=== PATIENT | female | born 1980 | race Caucasian/White ===

== ENCOUNTER → 2019-04-16 09:05 | Outpatient (BNVA) | payer BC, SELFPAY | PROVIDERS: Family Provider Family Medicine; PCP Family Medicine; Visit Provider Nurse Practitioner Women's Health | DX: Z01.89 Encounter for other specified special examinations (principal) ==

== ENCOUNTER 2019-05-25 12:34 | Outpatient (CLI) | payer BC, SELFPAY ==
--- NOTE | 2019-05-25 13:41 | XR_ITS ---
WS: [id number] LEFT CALCANEUS TECHNIQUE: Lateral and tangential view. HISTORY: PLANTAR FASCITIS COMPARISON: None available. Calcaneus is intact. No fracture. There is a very tiny calcaneal spur. No soft tissue thickening. XR/XR calcaneus LT min 2V [id number] IMPRESSION: Tiny calcaneal spur.
--- NOTE | 2019-05-25 13:42 | XR_ITS ---
WS: [id number] LEFT HIP HISTORY: LEFT HIP PAIN COMPARISON: None available. LEFT hip: No acute fracture or dislocation. No significant osteoarthritis. SI joint is negative. No soft tissue abnormality. XR/XR hip LT 2-3V wo/w pel* [id number] IMPRESSION: 1. No hip fracture. 2. Normal LEFT hip.
--- NOTE | 2019-05-25 13:43 | XR_ITS ---
WS: [id number] LUMBAR SPINE: 3 VIEWS TECHNIQUE: AP, lateral and L5-S1 spot. HISTORY: CHRONIC BACK PAIN COMPARISON: None available. Lumbar vertebra are normally aligned. Mild narrowing of the L4-5 disc space. Asymmetric narrowing greatest on the RIGHT. Minimal narrowing of the L5-S1 disc space. No fractures. SI joints are symmetric bilaterally. No soft tissue abnormalities. XR/XR lumbar spine 2-3V* [id number] IMPRESSION: 1. Mild asymmetric narrowing L4-5 disc space. 2. Minimal narrowing L5-S1 disc.
== END 2019-05-25 12:35 | disposition home or self-care (01) ==
LOC: RADWPI 12:38
PROVIDERS: Family Provider Family Medicine; PCP Family Medicine; Visit Provider Family Medicine
DX: M25.552 Pain in left hip (principal); M72.2 Plantar fascial fibromatosis; M54.9 Dorsalgia, unspecified; M48.061 Spinal stenosis, lumbar region without neurogenic claudication; M77.32 Calcaneal spur, left foot
CPT/HCPCS: 72100; 73502; 73650

== ENCOUNTER 2019-06-02 11:08 | Outpatient (CLI) | payer BC, SELFPAY ==
--- NOTE | 2019-06-02 11:17 | CT_ITS ---
WS: [id number] CT ABDOMEN PELVIS TECHNIQUE: Contrast-enhanced CT of the abdomen and pelvis with coronal and sagittal reformatted image s. CLINICAL INFORMATION: ABD PAIN, RLQ COMPARISON: None. DLP: 1209.[address] scans at [facility] use at least one of these dose optimization techniques: automat ed exposure control; mA and/or kV adjustment per patient size (includes targeted exams where dose is matched to clinical indication); or iterative reconstruction. FINDINGS: Liver is normal in appearance. Normal portal vein and splenic vein. Normal spleen. Normal pancreas. N ormal visualized gallbladder. Lung bases are well aerated. Normal bilateral renal parenchymal enhance ment. No hydronephrosis. Normal caliber abdominal aorta. Appendix in the right lower quadrant is normal. No evidence of acute appendicitis. Mild cecal constipation. Normal sigmoid colon. Pelvic phleboliths. No obstructing renal or ureteral c alculi. Multifollicular ovaries bilaterally. No free fluid in the pelvis. Ovaries are somewhat high riding in the right ovary is near the midline right lower quadrant. Notified Kevon Krishnamurthy MD at 06/02/2019 12:[address]/CT abdomen pelvis w con* [id number] IMPRESSION: 1. No evidence of acute appendicitis. Normal appendix. 2. No hydronephrosis in either kidney. No obstructing renal or ureteral calcul i. Normal renal parenchymal enhancement. 3. Multifollicular ovaries bilaterally are somewhat high riding with the right ovary near the midline. No periovarian fluid. 4. No free fluid in the pelvis. 5. Mild cecal constipation.
[2019-06-02] MEDS: iohexol 300 mg/mL 50 mL Btl PO (11:54)
[2019-06-02] MEDS: iohexol 300 mg/mL 100 mL Btl IV (11:55)
== END 2019-06-02 11:09 | disposition home or self-care (01) ==
LOC: RADWPI 11:16
PROVIDERS: Family Provider Family Medicine; PCP Family Medicine; Visit Provider Family Medicine
DX: R10.31 Right lower quadrant pain (principal); N83.02 Follicular cyst of left ovary; N83.01 Follicular cyst of right ovary; K59.00 Constipation, unspecified
CPT/HCPCS: 74177; Q9967

== ENCOUNTER → 2019-12-07 09:35 | Outpatient (BNVA) | payer BC, SELFPAY | PROVIDERS: Family Provider Family Medicine; PCP Family Medicine; Visit Provider Obstetrics & Gynecology | DX: E28.2 Polycystic ovarian syndrome (principal); N93.9 Abnormal uterine and vaginal bleeding, unspecified; N91.4 Secondary oligomenorrhea; R10.2 Pelvic and perineal pain | CPT/HCPCS: 83001; 84146; 84443; 84702 ==

== ENCOUNTER → 2019-12-15 08:11 | Outpatient (BNVA) | payer BC, SELFPAY | PROVIDERS: Family Provider Family Medicine; PCP Family Medicine; Visit Provider Obstetrics & Gynecology | DX: R10.2 Pelvic and perineal pain (principal); N91.5 Oligomenorrhea, unspecified; Q51.818 Other congenital malformations of uterus | CPT/HCPCS: 76830 ==

== ENCOUNTER → 2019-12-30 13:27 | Outpatient (BNVA) | payer BC, SELFPAY | PROVIDERS: Family Provider Family Medicine; PCP Family Medicine; Visit Provider Obstetrics & Gynecology | DX: Z01.812 Encounter for preprocedural laboratory examination (principal); N93.9 Abnormal uterine and vaginal bleeding, unspecified; N91.4 Secondary oligomenorrhea; R10.2 Pelvic and perineal pain | CPT/HCPCS: 81025; 88305 ==

== ENCOUNTER → 2020-02-03 14:01 | Outpatient (BNVA) | payer BC, SELFPAY | PROVIDERS: Family Provider Family Medicine; PCP Family Medicine; Visit Provider Obstetrics & Gynecology | DX: N93.9 Abnormal uterine and vaginal bleeding, unspecified (principal); Z30.9 Encounter for contraceptive management, unspecified; Z30.430 Encounter for insertion of intrauterine contraceptive device | CPT/HCPCS: 81025 ==

== ENCOUNTER → 2021-01-22 11:52 | Outpatient (BNVA) | payer BC, SELFPAY | PROVIDERS: Family Provider Family Medicine; PCP Family Medicine; Visit Provider Obstetrics & Gynecology | DX: N93.9 Abnormal uterine and vaginal bleeding, unspecified (principal) | CPT/HCPCS: 83001; 84146; 84443; 84702; 85025 ==

== ENCOUNTER → 2021-01-29 09:15 | Outpatient (BNVA) | payer BC, SELFPAY | PROVIDERS: Family Provider Family Medicine; PCP Family Medicine; Visit Provider Obstetrics & Gynecology | DX: R10.2 Pelvic and perineal pain (principal) | CPT/HCPCS: 76830 ==

== ENCOUNTER 2021-02-12 14:35 | Emergency (ER) | payer BC, SELFPAY ==
[2021-02-12 14:58] VITALS: BP 152/91; PULSE 83; RESP 18; O2SAT 99; BMI 25.8
--- NOTE | 2021-02-12 15:03 | US_ITS ---
WS: [id number] ULTRASOUND PELVIS TECHNIQUE: Transvaginal. CLINICAL INFORMATION: R lower pelvic pain, hx cysts FINDINGS: Uterus Orientation: Anteverted. Size: 7.5 x 3.8 x 4.9 cm Masses: None. Cervix: Incidental nabothian cysts. Endometrium: Normal. Endometrium thickness: 11 mm. Adnexa: Multi follicular right ovary. Left ovary not visualized. Right ovary size: 3.4 x 2.6 x 1.8 cm. Free fluid: Small amount of free fluid Other findings: None. US/US transvaginal [id number] IMPRESSION: 1. Small amount of free fluid in the cul-de-sac. 2. No acute pelvic findings.
[2021-02-12 15:16] LABS: Basophils % 0.3 %; Eosinophils # 0.1 10^3/uL (0.0-0.8); Eosinophils % 1.4 %; Hematocrit 44.2 % (37.0-47.0); Hemoglobin 14.7 g/dL (11.5-15.3); Lymphocytes # 2.2 10^3/uL (0.8-4.8); Lymphocytes % 22.7 %; Mean Corpuscular HGB Conc 33.3 g/dL (30.0-36.0); Mean Corpuscular Hemoglobin 30.1 pg (28.0-34.0); Mean Corpuscular Volume 90.6 fl (81-99); Mean Platelet Volume 9.9 fL (7.4-10.4); Monocytes # 0.7 10^3/uL (0.2-0.9); Monocytes % 6.8 %; Neutrophils # 6.53 10^3/uL (1.8-7.7); Neutrophils % 68.4 %; Nucleated Red Blood Cells % 0 %; Platelet Count 315 10^3/cmm (130-400); Red Blood Count 4.88 10^6/uL (4.1-5.3); Red Cell Distribution Width 11.8 % (12.1-15.1); White Blood Count 9.6 10^3/uL (4.0-10.0)
[2021-02-12 15:38] LABS: HCG, Serum Qual Negative (Negative)
[2021-02-12 15:41] LABS: Alanine Aminotransferase 11 U/L (0-33); Albumin Level 4.6 g/dL (3.5-5.2); Alkaline Phosphatase 66 IU/L (35-105); Anion Gap 16.9 (5-19); Aspartate Amino Transferase 13 U/L (0-32); Blood Urea Nitrogen 11 mg/dL (6-20); Calcium 8.9 mg/dL (8.5-10.5); Carbon Dioxide 24 mmol/L (22-29); Chloride 103 mmol/L (98-107); Globulin 2.9 g/dL (1.3-4.6); Glomerular Filtration Rate 111.9 mL/min (90-130); Glucose 96 mg/dL (65-115); Lipase 51 U/L (13-60); Osmolality Calculated 289 mOsm/kg (285-295); Potassium 3.9 mmol/L (3.5-5.1); Sodium 140 mmol/L (136-145); Total Bilirubin 0.3 mg/dL (0.15-1.2); Total Protein 7.5 g/dL (6.6-8.7)
[2021-02-12 19:50] LABS: Add Urine Microscopic? NO; Charge for UA Resulting for Rev
[2021-02-12 19:56] LABS: Bilirubin Urine Neg (Negative); Blood Urine Neg (Negative); Glucose Urine UA Norm (Normal); Ketones Urine Negative (Negative); Leukocyte Esterase Urine Negative (Negative); Nitrate Urine Negative (Negative); Protein Urine Neg (Negative); Urine Appearance Clear (CLEAR); Urine Color Yellow (Yellow); Urobilinogen Urine Norm (Negative); pH Urine 5 (5-7)
[2021-02-12 20:59] VITALS: BP 146/100; PULSE 71; RESP 18; O2SAT 100
--- NOTE | 2021-02-12 21:11 | ED_ITS ---
HPI - General Adult General: Chief complaint: General Medical Stated complaint: SEVERE RIGHT SIDE PAIN Time Seen by Provider: 02/12/21 21:02 Source: patient Mode of arrival: ambulatory Limitations: no limitations History of Present Illness: HPI narrative: 40-year-old female states she been having left lower quadrant pain over the last 2 days got much worse today states that its much worse with any palpation or movement. States improved with rest denies any vomiting or diarrhea denies any vaginal bleeding denies any vaginal discharge or dysuria. States the pain is currently a 5 out of 10. Associated symptoms: Deny chest pain, dyspnea, headache(s), nausea, rash or vomiting Review of Systems Const: Denies: fever(s), chills, body aches or change in appetite Eyes: Denies: blurry vision or eye discomfort ENMT: Denies: throat pain or dental pain Card: Denies: chest pain Resp: Denies: dyspnea GI: Reports: abdominal pain; Denies: nausea, vomiting or diarrhea : Denies: dysuria Musc: Denies: neck pain or back pain Skin/Breast: Denies: rash Neuro: Denies: headache(s) Psych: Denies: depression [place]/Lymph: Denies: easy bruising All/Imm: Denies: urticaria PFSH ED PFSH: Medical History (Updated 02/12/21 @ 22:16 by Kathy Mcdaniels MD) Acne Hx LEEP (loop electrosurgical excision procedure), cervix, (~2001) Immunosuppression Psoriatic arthritis Ulnar neuropathy of both upper extremities Surgical History H/O section (~02/2003) H/O neck surgery (~06/2018) laminectomy; fusion History of back surgery (~2009) ISMAEL [facility]RI[facility] [place] Family History Father Hypertension Heart disease Grandfather Hypertension PATERNAL Stroke PATERNAL Mother Diabetes Grandmother Diabetes PATERNAL Family history of thyroid problem MATERNAL Stroke MATERAL Denies family history of Colon cancer Ovarian cancer Clotting disorder Breast cancer Anesthesia complication Bleeding disorder Uterine cancer Thyroid condition Social History Additional social history: - Tobacco use: Denies Alcohol use: Denies Drug use: Denies Physical Exam Const: COMMON NORMALS: no acute distress, patient oriented x3 and healthy appearing HENMT: COMMON NORMALS: normocephalic and atraumatic HEAD & SCALP: normoc ephalic and atraumatic Eye: COMMON NORMALS: Equal, round and reactive pupils present and EOMs intact bilaterally PUPIL: Yes Equal, round and reactive pupils present Neck/C-Spine: COMMON NORMALS: full ROM and supple Chest: COMMONS NORMALS: normal inspection of the chest and normal palpation of entire chest wall Resp: COMMON NORMALS: normal respiratory effort, No retractions, No use of accessory muscles and clear to auscultation bilaterally AUSCULTATION: clear to auscultation bilaterally Cardio: COMMON NORMALS: regular rate, regular rhythm and No murmurs present (Cardio) RATE: regular rate RHYTHM: regular rhythm GI: COMMON NORMALS: Normal to inspection, nondistended, normoactive bowel sounds present, Soft to palpation and no masses PALPATION: Yes Soft to palpation and Yes Tenderness to palpation present (GI) Details: RLQ Extremity: COMMON NORMALS: normal to inspection and full ROM Neuro: COMMON NORMALS: patient oriented x3, moves all extremities and no focal motor deficits Psych: COMMON NORMALS: mental status grossly normal, Normal thought process present and cooperative THOUGHT PROCESS: Normal thought process present Skin: COMMON NORMALS: no rashes or lesions noted and no wounds GENERAL SKIN EXAM: no rashes or lesions noted Course Vital Signs: Vital signs: Vital Signs Pulse Rate 71 02/12/21 20:59 Respiratory Rate 18 02/12/21 20:59 Blood Pressure 146/100 02/12/21 20:59 Pulse Oximetry 100 02/12/21 20:59 MDM - General Adult MDM Narrative: Medical decision making narrative: Patient presents here with right lower quadrant abdominal pain patient CT of her abdomen here is normal no signs of appendicitis ultrasound was normal as well no signs of confusion she has no vaginal discharge blood work is normal as well she is stable for discharge follow-up with her primary care doctor in 2 to 4 days return if worsening she understands agrees to plan. Lab Data: Labs: Lab Results 02/12/21 02/12/21 02/12/21 15:06 15:06 15:06 WBC 9.6 10^3/uL 10^3/ uL (4.0-10.0) RBC 4.88 10^6/uL 10^6 /uL (4.1-5.3) Hgb 14.7 g/dL g/dL (11.5-15.3) Hct 44.2 % % (37.0-47.0) MCV 90.6 fl fl (81-99) MCH 30.1 pg pg (28.0-34.0) MCHC 33.3 g/dL g/dL (30.0-36.0) RDW 11.8 % L % (12.1-15.1) Plt Count 315 10^3/cmm 10^3 /cmm (130-400) MPV 9.9 fL fL (7.4-10.4) Neut % (Auto) 68.4 % % Lymph % (Auto) 22.7 % % [place] % (Auto) 6.8 % % Eos % (Auto) 1.4 % % Baso % (Auto) 0.3 % % Neut # (Auto) 6.53 10^3/uL 10^3 /uL (1.8-7.7) Lymph # (Auto) 2.2 10^3/uL 10^3/ uL (0.8-4.8) [place] # (Auto) 0.7 10^3/uL 10^3/ uL (0.2-0.9) Eos # (Auto) 0.1 10^3/uL 10^3/ uL (0.0-0.8) Baso # (Auto) 0.0 10^3/uL 10^3/ uL (0.0-0.1) Nucleated RBC % (a uto) 0 % % Nucleated RBCs # 0.0 /100WBC /100W BC Sodium 140 mmol/L mmol/L (136-145) Potassium 3.9 mmol/L mmol/L (3.5-5.1) Chloride 103 mmol/L mmol/L (98-107) Carbon Dioxide 24 mmol/L mmol/L (22-29) Anion Gap 16.9 (5-19) BUN 11 mg/dL mg/dL (6-20) Creatinine 0.6 mg/dL mg/dL (0.5-0.9) GFR Calculation 111.9 mL/min mL/m in (90-130) Glucose 96 mg/dL mg/dL (65-115) Calculated Osmolal ity 289 mOsm/kg mOsm/ kg (285-295) Calcium 8.9 mg/dL mg/dL (8.5-10.5) Total Bilirubin 0.3 mg/dL mg/dL (0.15-1.2) AST 13 U/L U/L (0-32) ALT 11 U/L U/L (0-33) Alkaline Phosphata se 66 IU/L IU/L (35-105) Total Protein 7.5 g/dL g/dL (6.6-8.7) Albumin 4.6 g/dL g/dL (3.5-5.2) Globulin 2.9 g/dL g/dL (1.3-4.6) Lipase 51 U/L U/L (13-60) HCG, Qual Negative (Negative) Urine Color Urine Appearance Urine pH Ur Specific Gravit y Urine Protein Urine Glucose (UA) Urine Ketones Urine Blood Urine Nitrate Urine Bilirubin Urine Urobilinogen Ur Leukocyte Roxie ase 02/12/21 19:30 WBC RBC Hgb Hct MCV MCH MCHC RDW Plt Count MPV Neut % (Auto) Lymph % (Auto) [place] % (Auto) Eos % (Auto) Baso % (Auto) Neut # (Auto) Lymph # (Auto) [place] # (Auto) Eos # (Auto) Baso # (Auto) Nucleated RBC % (a uto) Nucleated RBCs # Sodium Potassium Chloride Carbon Dioxide Anion Gap BUN Creatinine GFR Calculation Glucose Calculated Osmolal ity Calcium Total Bilirubin AST ALT Alkaline Phosphata se Total Protein Albumin Globulin Lipase HCG, Qual Urine Color Yellow (Yellow) Urine Appearance Clear (CLEAR) Urine pH 5 (5-7) Ur Specific Gravit y 1.020 (1.005-1.030) Urine Protein Neg (Negative) Urine Glucose (UA) Norm (Normal) Urine Ketones Negative (Negative) Urine Blood Neg (Negative) Urine Nitrate Negative (Negative) Urine Bilirubin Neg (Negative) Urine Urobilinogen Norm mg/dL mg/dL (Negative) Ur Leukocyte Roxie ase Negative (Negative) Imaging Data^: CT Abd/Pel: Attestation: I personally reviewed and interpreted this imaging study as follows: Radiologist's impression: [address] [address] [address] Scan Report Signed Patient: Kalyn Trejo Unit #: [id number] : 1980 Age/Sex: 40 / F ADM Date: 02/12/21 Loc: ER Room/Bed: Attending Dr: Ordering Provider/Ordering MD: Kathy Mcdaniels MD Date of Service: 02/12/21 Procedure(s): CT abdomen pelvis w con* [id number] Accession Number(s): [id number] Report Number: [id number] PROCEDURE INFORMATION: Exam: CT Abdomen And Pelvis With Contrast Exam date and time: 02/12/2021 9:10 PM Age: 40 years old Clinical indication: Abdominal pain; Localized; Right lower quadrant (rlq); Prior surgery; Surgery type: , back; Additional info: Abd pain TECHNIQUE: Imaging protocol: Computed tomography of the abdomen and pelvis with contrast. Radiation optimization: All CT scans at this facility use at least one of these dose optimization techniques: automated exposure control; mA and/or kV adjustment per patient size (includes targeted exams where dose is matched to clinical indication); or iterative reconstruction. Contrast material: OMNI 300; Contrast volume: 95 ml; Contrast route: INTRAVENOUS (IV); COMPARISON: CT abdomen pelvis w con* [id number] 06/02/2019 11:52 AM RADIATION DOSE METRICS: Total DLP (mGy-cm): 1310.29 FINDINGS: Liver: There is no focal abnormality within the liver. Gallbladder and bile ducts: The gallbladder is normal. Pancreas: The pancreas is normal. Spleen: The spleen is normal. Adrenal glands: The adrenal glands are normal. Kidneys and ureters: The kidneys are normal. There is no evidence of hydronephrosis. There is no evidence of renal or ureteral calcifications. Stomach and bowel: There is no evidence of colitis/diverticulitis. Appendix: A normal appendix is identified. Intraperitoneal space: There is no evidence of free intraperitoneal fluid. Vasculature: Unremarkable. No abdominal aortic aneurysm. Lymph nodes: Unremarkable. No enlarged lymph nodes. Urinary bladder: Unremarkable as visualized. Reproductive: Unremarkable as visualized. Bones/joints: The lumbar spine demonstrates moderate degenerative changes at multiple levels. Soft tissues: Unremarkable. CT/CT abdomen pelvis w con* [id number] IMPRESSION: No acute findings. Dictated By: Ed Pascual Signed By: Ed Pascual Signed Date/Time: 02/12/212203 DD/ 09 US: Attestation: I personally reviewed and interpreted this imaging study as follows: Radiologist's impression: [address] [place] [address] Ultrasound Report Signed Patient: Kalyn Trejo Unit #: [id number] : 1980 Age/Sex: 40 / F ADM Date: 02/12/21 Loc: ER Room/Bed: Attending Dr: Ordering Provider/Ordering MD: Celsa Singh Date of Service: 02/12/21 Procedure(s): US transvaginal [id number] Accession Number(s): [id number] Report Number: [id number] WS: [id number] ULTRASOUND PELVIS TECHNIQUE: Transvaginal. CLINICAL INFORMATION: R lower pelvic pain, hx cysts FINDINGS: Uterus Orientation: Anteverted. Size: 7.5 x 3.8 x 4.9 cm Masses: None. Cervix: Incidental nabothian cysts. Endometrium: Normal. Endometrium thickness: 11 mm. Adnexa: Multi follicular right ovary. Left ovary not visualized. Right ovary size: 3.4 x 2.6 x 1.8 cm. Free fluid: Small amount of free fluid Other findings: None. US/US transvaginal [id number] IMPRESSION: 1. Small amount of free fluid in the cul-de-sac. 2. No acute pelvic findings. Dictated By: Addison Arnold MD Signed By: Addison Arnold MD Signed Date/Time: 02/12/21 1621 DD/ 1619 Discharge Plan Discharge Patient Disposition: Home Clinical Impression: Abdominal pain Qualifiers: Abdominal location: right lower quadrant Qualified Code(s): R10.31 - Right lower quadrant pain Condition: Stable Prescriptions: No Action multivitamin Tablet 1 tab PO DAILY RF: 0 lidocaine-epinephrine 2 %-1:100,000 solution 10 ml SUBCUT ONCE Qty: 10 RF: 0 mupirocin 2 % ointment 1 applic topical BID PRNRF: 0 aluminum chloride [Drysol Dab-O-Matic] 20 % solution 1 applic topical ONCE PRNRF: 0 escitalopram oxalate [Lexapro] 5 mg tablet 10 mg PO DAILY RF: 0 lorazepam 0.5 mg tablet 0.5 mg PO DAILY PRNRF: 0 medroxyprogesterone 10 mg tablet 10 mg PO DAILY Qty: 10 RF: 0 Tremfya 100 mg/mL auto-injector 100 mg SUBCUT .q 8 weeks Qty: 1 RF: 3 Discharge Orders: Discharge ED (Routine); Ordered 02/12/21 Ordered By: Kathy Mcdaniels Referrals: Vishnu Hernandez MD [Primary Care Provider] - 1-3 days Discharge Diet: Advance as tolerated Discharge Activity: Resume usual activity Patient Instructions: Abdominal Pain (ED) Coding Level of Care Code ED Industrial Services Worker for Chg Fwd Exam Comprehensive
[2021-02-12] MEDS: iohexol 300 mg/mL 100 mL Btl IV (21:32)
--- NOTE | 2021-02-12 21:51 | PC.NURSE ---
will hold patients IV morphine and zofran as patient denies nausea and states pain 1-2/10 scale and states if im not hurting really bad id really like to be able to drive myself home.
[2021-02-12 22:33] VITALS: BP 119/71; PULSE 63; RESP 18; TEMP 36.7; TEMP 36.8; O2SAT 99
== END 2021-02-12 22:37 | disposition home or self-care (01) ==
PROVIDERS: Physician Assistant; Emergency Provider Emergency Medicine; PCP Family Medicine
DX: R10.31 Right lower quadrant pain (principal)
CPT/HCPCS: 36415; 74177; 76830; 80053; 81003; 83690; 84703; 85025; 99283; Q9967

== ENCOUNTER → 2021-03-30 10:30 | Outpatient (BNVA) | payer BC, SELFPAY | PROVIDERS: PCP Family Medicine; Visit Provider Obstetrics & Gynecology | DX: G89.29 Other chronic pain (principal); R10.2 Pelvic and perineal pain; Z20.822 Contact with and (suspected) exposure to COVID-19 | CPT/HCPCS: 87635 ==

== ENCOUNTER 2021-04-02 09:49 | Outpatient (CLI) | payer BC, SELFPAY ==
[2021-04-02 11:12] LABS: Basophils % 0.4 %; Eosinophils # 0.2 10^3/uL (0.0-0.8); Eosinophils % 1.8 %; Hematocrit 45.9 % (37.0-47.0); Hemoglobin 14.9 g/dL (11.5-15.3); Lymphocytes # 1.9 10^3/uL (0.8-4.8); Lymphocytes % 22.9 %; Mean Corpuscular HGB Conc 32.5 g/dL (30.0-36.0); Mean Corpuscular Hemoglobin 29.4 pg (28.0-34.0); Mean Corpuscular Volume 90.5 fl (81-99); Monocytes # 0.7 10^3/uL (0.2-0.9); Monocytes % 8.4 %; Neutrophils # 5.62 10^3/uL (1.8-7.7); Nucleated Red Blood Cells % 0 %; Platelet Count 290 10^3/cmm (130-400); Red Blood Count 5.07 10^6/uL (4.1-5.3); Red Cell Distribution Width 11.8 % (12.1-15.1); White Blood Count 8.5 10^3/uL (4.0-10.0)
[2021-04-02 11:37] LABS: Alanine Aminotransferase 15 U/L (0-33); Albumin Level 4.5 g/dL (3.5-5.2); Alkaline Phosphatase 70 IU/L (35-105); Anion Gap 10.2 (5-19); Aspartate Amino Transferase 16 U/L (0-32); Blood Urea Nitrogen 8 mg/dL (6-20); Calcium 9.6 mg/dL (8.5-10.5); Carbon Dioxide 28 mmol/L (22-29); Chloride 103 mmol/L (98-107); Globulin 3.3 g/dL (1.3-4.6); Glomerular Filtration Rate 111.9 mL/min (90-130); Glucose 107 mg/dL (65-115); Osmolality Calculated 283 mOsm/kg (285-295); Potassium 4.2 mmol/L (3.5-5.1); Sodium 137 mmol/L (136-145); Total Bilirubin 0.2 mg/dL (0.15-1.2); Total Protein 7.8 g/dL (6.6-8.7)
[2021-04-02 12:05] LABS: HIV 1 & 2 Antibody Non-Reactive (Non-Reactiv); HIV 1 & 2 Antigen Non-Reactive (Non-Reactiv)
[2021-04-02 12:58] LABS: Hepatitis A Antibody IgM Non-Reactive (Nonreactive); Hepatitis B Core AB, Total Non-Reactive (Nonreactive); Hepatitis C Virus Antibody Non-Reactive (Nonreactive)
[2021-04-02 15:26] LABS: Hepatitis B Surface AB < 3.5 (11.5-1000)
[2021-04-02 15:56] LABS: Hepatitis B Surface Antigen Non-Reactive (Nonreactive)
[2021-04-04 14:32] LABS: Quantiferon Mitogen >10.00 IU/mL; Quantiferon Nil 0.01 IU/mL; Quantiferon Plus TB2 0.01 IU/mL; Quantiferon TB Gold NEGATIVE (NEGATIVE)
== END 2021-04-02 09:50 | disposition home or self-care (01) ==
PROVIDERS: PCP Family Medicine; Visit Provider Dermatology
DX: L40.0 Psoriasis vulgaris (principal); Z79.899 Other long term (current) drug therapy
CPT/HCPCS: 80053; 85025; 86480; 86705; 86706; 86709; 86803; 87340; 87806

== ENCOUNTER 2021-04-04 10:11 | Day surgery (SDC) | payer BC, SELFPAY ==
[2021-04-02 10:30] VITALS: BMI 26.6
--- NOTE | 2021-04-02 12:48 | ANES.PREANE2 ---
Pre-Anesthetic Assessment Height/Weight: Height 1.7 m Weight 77.111 kg Operation Date: 04/04/21 07:00 Proposed Procedures p [id number]/R10.2/G89.29(Not Applicable) - Hamzah Bedolla MD Was Beta Curtis taken within 24 hours: N/A Social No alcohol and No tobacco Exam alert, oriented x 3, clear to auscultation bilaterally and regular rate & rhythm Airway Submandibular: within normal limits Cervical ROM: Other (Limited prior neck surgery) Mallampati: Class I Dentition: full Pulmonary None reported CV/HEM None reported METS > 4 Chronic abdominal pain Hepatic None reported GI None reported Metabolic None reported Musc/skel Psoriatic arthritis on immunosuppresive agents Neuropsych None reported Anesthetic Plan ASA status: 2 Anesthesia: Anesthesia Evaluation and General Risk of > 500 ml blood loss (7ml/kg in children): No Medications/Allergies Home Medications Medication Instructions Recorded Confirmed Last Taken Type aluminum chloride 20 % topical 1 applic TOPICAL ONCE PRN ml 01/22/21 04/02/21 Unknown History solution (Drysol Dab-O-Matic) mupirocin 2 % topical ointment 1 applic TOPICAL BID PRN g 01/22/21 04/02/21 Unknown History escitalopram oxalate 5 mg tablet 10 mg PO DAILY tab 02/02/21 04/02/21 Unknown History (Lexapro) lorazepam 0.5 mg tablet 0.5 mg PO DAILY PRN 02/02/21 04/02/21 Unknown History guselkumab 100 mg/mL subcutaneous 100 mg SUBCUT .C1gmnae #1 ml 03/06/21 04/02/21 Unknown Rx syringe (Tremfya) Allergies Allergy/AdvReac Type Severity Reaction Status Date / Time No Known Allergies Allergy Verified 04/02/21 10:27 [facility] Anesthesia Medical History Acne Hx LEEP (loop electrosurgical excision procedure), cervix, (~2001) Immunosuppression Psoriatic arthritis Ulnar neuropathy of both upper extremities Surgical History H/O section (~02/2003) H/O neck surgery (~06/2018) laminectomy; fusion History of back surgery (~2009) [facility] [place] Family History Father Hypertension Heart disease Grandfather Hypertension PATERNAL Stroke PATERNAL Mother Diabetes Grandmother Diabetes PATERNAL Family history of thyroid problem MATERNAL Stroke MATERAL Denies family history of Colon cancer Ovarian cancer Clotting disorder Breast cancer Anesthesia complication Bleeding disorder Uterine cancer Thyroid condition Social History Additional social history: - Tobacco use: Denies Alcohol use: Denies Drug use: Denies Female Reproductive History Date of last menstrual period: 02/19/21 Data Anesthesia Cardiac Studies: No Data to Display
[2021-04-04] VITALS (7 sets, daily range): BP systolic 108–143; BP diastolic 51–85; PULSE 75–99; RESP 16–20; TEMP 36.2–36.8; O2SAT 96–100
--- NOTE | 2021-04-04 09:38 | ANES.PAUD2 ---
Pre-Anesthetic Update Pre-Anesthetic Assessment: Date of Surgery/Procedure: 04/04/21 Proposed Procedure: Operation Date: 04/04/21 11:50 Proposed Procedures p [id number]/R10.2/G89.29(Not Applicable) - Hamzah Bedolla MD Any changes to Pre-Anesthetic Assessment?: No Exam: Pre-Anes Outpt Exam: alert, oriented x 3, clear to auscultation bilaterally and regular rate & rhythm Cardiac Studies: No Data to Display
[2021-04-04 10:53] LABS: Add Urine Microscopic? NO; Charge for UA Resulting for Rev
[2021-04-04] MEDS: scopolamine 1.5 Patch 1 PATCH TRANSDERMA (11:00)
[2021-04-04] MEDS: sodium chloride 0.9% 500 ML IV (11:00)
[2021-04-04 11:01] LABS: Basophils % 0.4 %; Eosinophils # 0.1 10^3/uL (0.0-0.8); Eosinophils % 1.1 %; Hematocrit 43.6 % (37.0-47.0); Hemoglobin 14.5 g/dL (11.5-15.3); Lymphocytes # 2.1 10^3/uL (0.8-4.8); Lymphocytes % 25.8 %; Mean Corpuscular HGB Conc 33.3 g/dL (30.0-36.0); Mean Corpuscular Hemoglobin 29.7 pg (28.0-34.0); Mean Corpuscular Volume 89.2 fl (81-99); Mean Platelet Volume 9.8 fL (7.4-10.4); Monocytes # 0.6 10^3/uL (0.2-0.9); Monocytes % 7.7 %; Neutrophils # 5.28 10^3/uL (1.8-7.7); Neutrophils % 64.6 %; Nucleated Red Blood Cells % 0 %; Platelet Count 271 10^3/cmm (130-400); Red Blood Count 4.89 10^6/uL (4.1-5.3); Red Cell Distribution Width 11.6 % (12.1-15.1); White Blood Count 8.2 10^3/uL (4.0-10.0)
[2021-04-04 11:03] LABS: OR HCG Qualitative Urine Negative (Negative)
[2021-04-04 11:19] LABS: Bilirubin Urine Neg (Negative); Blood Urine Neg (Negative); Glucose Urine UA Norm (Normal); Ketones Urine Negative (Negative); Leukocyte Esterase Urine Negative (Negative); Nitrate Urine Negative (Negative); Protein Urine Neg (Negative); Urine Appearance Clear (CLEAR); Urine Color Yellow (Yellow); Urobilinogen Urine Neg (Negative); pH Urine 6 (5-7)
[2021-04-04 11:47] LABS: Alanine Aminotransferase 13 U/L (0-33); Albumin Level 4.2 g/dL (3.5-5.2); Alkaline Phosphatase 66 IU/L (35-105); Aspartate Amino Transferase 18 U/L (0-32); Blood Urea Nitrogen 9 mg/dL (6-20); Calcium 8.9 mg/dL (8.5-10.5); Carbon Dioxide 25 mmol/L (22-29); Chloride 104 mmol/L (98-107); Creatinine Clr Calc Pharmacy 136.0797; Globulin 2.9 g/dL (1.3-4.6); Glomerular Filtration Rate 111.9 mL/min (90-130); Glucose 103 mg/dL (65-115); Osmolality Calculated 283 mOsm/kg (285-295); Sodium 137 mmol/L (136-145); Total Bilirubin 0.4 mg/dL (0.15-1.2); Total Protein 7.1 g/dL (6.6-8.7)
--- NOTE | 2021-04-04 11:56 | W.PM.OPSUD ---
Surgery/Procedure H&P Update DATE OF PROCEDURE: April 04, 2021 DATE H&P PERFORMED: 03/09/21 H&P UPDATE INFORMATION: I have reviewed H&P completed within last 30 days and No changes to prior documentation PREOP DIAGNOSIS: Pelvic pain, abnormal uterine bleeding, PLANNED PROCEDURE: Operation Date: 04/04/21 11:50 Proposed Procedures p [id number]/R10.2/G89.29(Not Applicable) - Hamzah Bedolla MD
[2021-04-04] MEDS: sodium chloride 0.9% 1,000 ML 30 ML IV (12:00)
--- NOTE | 2021-04-04 13:20 | P.OP_ITS ---
Operative Report Date of procedure: April 04, 2021 Pre-op diagnosis: Preop Diagnosis Pelvic pain, oligomenorrhea, Procedure done: Diagnostic laparoscopy Specimens removed/disposition: None Surgeon: Hamzah Bedolla MD Estimated blood loss: 1 IV fluids (mL): 450 Urine output: 200 Complications: None Findings: Normal pelvic anatomy. Pelvic congestion. Procedure: DESCRIPTION OF PROCEDURE: After informed consent, the patient was taken to the operating room where general anesthesia was administered. The patient was examined under anesthesia and found to have a normal uterus with normal adnexa. She was placed in the dorsal lithotomy position and prepped and draped in sterile fashion. Pre- Procedure Time-Out verifying the correct patient identity, correct procedure verified with consent, correct site and side, correct patient position, availability of correct implants and any special equipment or requirements was performed and acknowledge by the OR team. A weighted speculum was placed in the vagina, and the anterior lip of cervix was grasped with the single toothed tenaculum. A uterine manipulator was advanced into the endocervical. Tenaculum was removed after uterine manipulator was secured. The speculum was removed from the vagina. An intraumbilical incision was made with a scalpel. While tenting up on the abdomen, a Verres needle with sleeve was admitted into the intra-abdominal cavity. A saline drop test was performed and noted to be within normal limits. Pneumoperitoneum was attained with 4 liters of carbon dioxide. The Verres needle was removed. A 5 mm trocar and sleeve were admitted into the abdomen and la paroscopic confirmation of location was achieved, A second incision was made 3 cm above the symphysis pubis, and a 5 mm trocar and sleeve were admitted into the abdomen under direct, laparoscopic visualization without complication. A survey revealed normal abdominal anatomy. The pelvic survey shows normal uterus, left and right adnexa. A 5 mm blunt probe was advanced through the second trocar sleeve, and light manipulation of ovaries and uterus to assess the posterior aspects was performed. Only increased vascular pattern with engorged vessels was noted. Carbon dioxide was allowed to escape from the abdomen. The instruments were removed, and skin cover with a bandage. The instruments were removed from the vagina, and excellent hemostasis was noted. The patient tolerated the procedure well, and sponge, lap and needle count were correct times two. The patient taken to the recovery room in good condition.
--- NOTE | 2021-04-04 16:24 | ANE.PACU2 ---
Inpatient post-anesthesia follow up: Airway intact: Yes Vital signs: Temperature 97.7 F Pulse Rate 82 Respiratory Rate 18 Blood Pressure 108/64 Pulse Oximetry 99 Oxygen Delivery Me thod Room Air Oxygen Flow Rate 6 Fraction of Inspir ed Oxygen Hydration adequate: Yes Nausea and vomiting: No Pain level: 1 Mental status: Baseline
== END 2021-04-04 15:07 | disposition home or self-care (01) ==
PROVIDERS: PCP Family Medicine; Visit Provider Obstetrics & Gynecology
PROC: (CPT 49320; principal; 2021-04-04 11:50)
DX: R10.2 Pelvic and perineal pain (principal); N91.5 Oligomenorrhea, unspecified; G89.29 Other chronic pain
CPT/HCPCS: 49320; 36415; 80053; 81003; 81025; 84703; 85025; 86850; 86900; 96365; J0690; J1100; J1200; J1885; J2250; J2405; J2704; J2710; J3010; J3490; J7030; J7040

== ENCOUNTER → 2021-05-15 09:25 | Outpatient (BNVA) | payer BC, SELFPAY | PROVIDERS: PCP Family Medicine; Visit Provider Obstetrics & Gynecology | DX: R23.2 Flushing (principal); R53.83 Other fatigue | CPT/HCPCS: 84443 ==

== ENCOUNTER 2021-06-27 10:26 | Outpatient (CLI) | payer BC, SELFPAY ==
[2021-06-27 12:31] LABS: 25 Hydroxy Vitamin D 16 ng/mL (30-100); Vitamin B12 639 pg/mL (232-1245)
[2021-06-27 13:22] LABS: Free T4 Free Thyroxine 1.13 ng/dL (0.82-1.77)
[2021-06-28 14:02] LABS: Thyroglobulin AB <1 IU/mL (< or = 1); Thyroid Peroxidase Antobodies 1 IU/mL (<9)
[2021-07-03 14:32] LABS: IGF1 LC/MS 136 ng/mL (53-331); Z Score (Female) -0.1 SD (-2.0 - +2.0)
== END 2021-06-27 10:27 | disposition home or self-care (01) ==
LOC: LAB 10:29
PROVIDERS: PCP Family Medicine; Visit Provider Internal Medicine
DX: R53.83 Other fatigue (principal); R63.5 Abnormal weight gain; E55.9 Vitamin D deficiency, unspecified
CPT/HCPCS: 82306; 82607; 84305; 84439; 84443; 86376; 86800

== ENCOUNTER 2021-10-03 12:00 | Outpatient (CLI) | payer BC, SELFPAY | END 2021-10-03 12:01 | disposition home or self-care (01) | LOC: SLEEP 10-04 11:06 | PROVIDERS: PCP Family Medicine; Visit Provider Internal Medicine | DX: R53.83 Other fatigue (principal); G47.33 Obstructive sleep apnea (adult) (pediatric) | CPT/HCPCS: G0399 ==

== ENCOUNTER → 2022-01-31 15:05 | Outpatient (BNVA) | payer BC, SELFPAY | PROVIDERS: PCP Family Medicine; Visit Provider Nurse Practitioner Family | DX: J02.9 Acute pharyngitis, unspecified (principal) | CPT/HCPCS: 87880 ==

== ENCOUNTER → 2022-02-06 11:26 | Outpatient (BNVA) | payer BC, SELFPAY | PROVIDERS: PCP Family Medicine; Visit Provider Clinical Nurse Specialist Adult Health | DX: E53.8 Deficiency of other specified B group vitamins (principal); E78.5 Hyperlipidemia, unspecified; E66.01 Morbid (severe) obesity due to excess calories; E55.9 Vitamin D deficiency, unspecified | CPT/HCPCS: 80053; 80061; 82306; 82607; 85025 ==

== ENCOUNTER → 2022-05-16 10:24 | Outpatient (BNVA) | payer OTHER, SELFPAY | PROVIDERS: PCP Family Medicine; Visit Provider Family Medicine | DX: E78.5 Hyperlipidemia, unspecified (principal); E55.9 Vitamin D deficiency, unspecified; E53.8 Deficiency of other specified B group vitamins; Z98.84 Bariatric surgery status | CPT/HCPCS: 80053; 80061; 82306; 82607; 83735; 85025; 86480; 86705; 86706; 86709; 86803; 87340; 87806 ==

== ENCOUNTER 2022-05-19 04:26 | Emergency (ER) | payer OTHER, SELFPAY ==
[2022-05-19 04:40] VITALS: BP 100/52; PULSE 57; RESP 18; O2SAT 98; BMI 22.7
[2022-05-19 04:42] VITALS: BP 103/65; PULSE 61; RESP 16; O2SAT 100
[2022-05-19 04:49] VITALS: BP 103/59; BP 103/65; BP 92/65; PULSE 57; PULSE 62; PULSE 67
--- NOTE | 2022-05-19 04:49 | XRR_ITS ---
PROCEDURE INFORMATION: Exam: XR Chest Exam date and time: 05/19/2022 4:56 AM Age: 41 years old Clinical indication: Other: Syncope TECHNIQUE: Imaging protocol: Radiologic exam of the chest. Views: 1 view. COMPARISON: CR XR chest 1V [id number] 01/09/2018 6:33 AM FINDINGS: Lungs: Unremarkable. No consolidation. Pleural spaces: Unremarkable. No pleural effusion. No pneumothorax. Heart/Mediastinum: Unremarkable. No cardiomegaly. Bones/joints: Unremarkable. XR/XR chest 1V portable [id number] IMPRESSION: No acute findings.
--- NOTE | 2022-05-19 04:49 | ECG_ITS ---
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
[2022-05-19] MEDS: sodium chloride 0.9% 1,000 ML 999 ML IV (05:04)
[2022-05-19 05:18] LABS: Basophils % 0.4 %; Eosinophils # 0.1 10^3/uL (0.0-0.8); Eosinophils % 1.9 %; Hemoglobin 13.6 g/dL (11.5-15.3); Lymphocytes # 2.3 10^3/uL (0.8-4.8); Lymphocytes % 31.6 %; Mean Corpuscular HGB Conc 32.4 g/dL (30.0-36.0); Mean Corpuscular Hemoglobin 29.4 pg (28.0-34.0); Mean Corpuscular Volume 90.7 fl (81-99); Monocytes # 0.5 10^3/uL (0.2-0.9); Monocytes % 6.2 %; Neutrophils # 4.34 10^3/uL (1.8-7.7); Neutrophils % 59.5 %; Nucleated Red Blood Cells % 0 %; Platelet Count 274 10^3/cmm (130-400); Red Blood Count 4.63 10^6/uL (4.1-5.3); Red Cell Distribution Width 11.8 % (12.1-15.1); White Blood Count 7.3 10^3/uL (4.0-10.0)
--- NOTE | 2022-05-19 05:20 | CTR_ITS ---
PROCEDURE INFORMATION: Exam: CT Head Without Contrast Exam date and time: 05/19/2022 5:45 AM Age: 41 years old Clinical indication: Other: Syncope; Additional info: Syncope, headache TECHNIQUE: Imaging protocol: Computed tomography of the head without contrast. Radiation optimization: All CT scans at this facility use at least one of these dose optimization techniques: automated exposure control; mA and/or kV adjustment per patient size (includes targeted exams where dose is matched to clinical indication); or iterative reconstruction. REPORTING DATA: Count of CT and Cardiac NM exams in prior 12 months: This patient has received 0 known CTs and 0 known cardiac nuclear medicine studies in the 12 months prior to the current study. COMPARISON: CT angio headneck* [id number] 01/09/2018 7:01 AM RADIATION DOSE METRICS: Total DLP (mGy-cm): 1161.25 FINDINGS: Brain: Normal. No hemorrhage. Unremarkable white matter. No mass effect. Cerebral ventricles: No ventriculomegaly. Paranasal sinuses: Visualized sinuses are unremarkable. No fluid levels. Mastoid air cells: Visualized mastoid air cells are well aerated. Bones/joints: Unremarkable. No acute fracture. Soft tissues: Unremarkable. CT/CT head wo con* [id number] IMPRESSION: No acute intracranial abnormality.
[2022-05-19 05:35] LABS: HCG, Serum Qual Negative (Negative)
[2022-05-19 05:41] LABS: Troponin(5th) Baseline 6 ng/L (0-10)
[2022-05-19 05:42] VITALS: BP 92/67; PULSE 58; RESP 14; O2SAT 100
--- NOTE | 2022-05-19 05:49 | ED_ITS ---
HPI - Syncope General: Chief Complaint: Syncope Stated Complaint: syncope episode Time Seen by Provider: 05/19/22 04:49 Source: patient History of Present Illness: 41-year-old female who woke up this morning and went to the restroom. he was asleep heard commotion in the bathroom. He found her on the commode unconscious. She was breathing and had a pulse. She did not respond for a couple of minutes. He used a blood pressure monitor at home, but could not get a good blood pressure on her, so they came to the emergency room. She denies any chest pain she does have a headache. MD complaint: loss of consciousness Onset (ago): minute(s) Duration of episode: 2 -: minutes(s) Description of event: other Prodromal symptoms: lightheaded Witnessed: No Context: after urination Associated symptoms: Reports abdominal pain (not now), headache(s), lightheadedness and nausea; Deny chest pain, fever(s), short of breath or weakness Review of Systems Const: Denies: fever(s) Card: Reports: lightheadedness; Denies: chest pain Resp: Denies: dyspnea, productive cough or non-productive cough GI: Reports: abdominal pain (not now) and nausea Neuro: Reports: headache(s) PFS ED PFSH: Medical History Acne Aftercare following surgery of the genitourinary system Hx LEEP (loop electrosurgical excision procedure), cervix, (~2001) Immunosuppression Psoriatic arthritis Ulnar neuropathy of both upper extremities Surgical History H/O section (~02/2003) H/O laparoscopy 04/04/2021- diagnostic laparoscopy performed by Dr. Bedolla at [facility] H/O neck surgery (~06/2018) laminectomy; fusion History of back surgery (~2009) [facility] History of weight loss surgery gastric sleeve 12/01/21 [place] Family History Father Hypertension Heart disease Grandfather Hypertension PATERNAL Stroke PATERNAL Mother Diabetes Grandmother Diabetes PATERNAL Family history of thyroid problem MATERNAL Stroke MATERAL Denies family history of Colon cancer Ovarian cancer Clotting disorder Breast cancer Anesthesia complication Bleeding disorder Uterine cancer Thyroid condition Social History Smoking and tobacco status: never smoked Additional social history: - Tobacco use: Denies Alcohol use: Denies Drug use: Denies Physical Exam Const: COMMON NORMALS: no acute distress GENERAL APPEARANCE: cooperative; not ill appearing and not frail appearing HENMT: COMMON NORMALS: normocephalic, atraumatic and Normal external nose present HEAD & SCALP: normocephalic and atraumatic FACE & SINUS: normal facial exam and face symmetric NOSE: Normal external nose present Eye: COMMON NORMALS: Equal, round and reactive pupils present and EOMs intact bilaterally PUPIL: Yes Equal, round and reactive pupils present Neck/C-Spine: GENERAL: Yes trachea midline Chest: CHEST: Yes Symmetrical chest wall rise Resp: COMMON NORMALS: normal respiratory effort, No retractions, No use of accessory muscles and clear to auscultation bilaterally AUSCULTATION: clear to auscultation bilaterally Cardio: COMMON NORMALS: regular rate and regular rhythm RATE: regular rate RHYTHM: regular rhythm GI: COMMON NORMALS: Normal to inspection, nondistended, normoactive bowel sounds present Extremity: COMMON NORMALS: no pedal edema Neuro: BABAK COMA SCALE: document GCS findings Stigler coma scale eye opening: Spontaneous Babak coma scale verbal response: Orientated Stigler coma scale motor response: Obey commands Stigler coma scale total score: 15 SENSORY EXAM: Yes extremities (intact) Psych: COMMON NORMALS: speech normal SPEECH: Yes normal speech Skin: COMMON NORMALS: no rashes or lesions noted GENERAL SKIN EXAM: no rashes or lesions noted Course Vital Signs: Vital signs: Vital Signs Pulse Rate 52 L 05/19/22 06:48 Respiratory Rate 16 05/19/22 06:48 Blood Pressure 107/68 05/19/22 06:48 Pulse Oximetry 98 05/19/22 06:48 Oxygen Delivery Me thod 05/19/22 06:00 MDM - Syncope Medical Decision Making Patient has a headache, which is improved after medication. Chest x-ray is negative. Head CT is negative. She was minimally hypotensive, and somewhat bradycardic. She was given IV fluid, and felt improved. CBC is normal. CMP is normal. Urinalysis shows trace leukocyte esterase. Her first troponin is 6. EKG shows a sinus rhythm with normal axis and a left fascicular block. With improvement in her symptoms, she will be allowed home. She will watch her heart rate closely as well as her blood pressure, and report these numbers to her physician. Further work-up could include a Holter monitor should bradycardia, or syncopal episodes continue Lab Data 05/19/22 05:01 05/19/22 05:01 Radiology Impressions Chest X-Ray 05/19/22 04:49 IMPRESSION: No acute findings. Head CT 05/19/22 05:20 IMPRESSION: No acute intracranial abnormality. Laboratory Results WBC 7.3 10^3/uL (4.0-10.0) 05/19/22 05:01 RBC 4.63 10^6/uL (4.1-5.3) 05/19/22 05:01 Hgb 13.6 g/dL (11.5-15.3) 05/19/22 05:01 Hct 42.0 % (37.0-47.0) 05/19/22 05:01 MCV 90.7 fl (81-99) 05/19/22 05:01 MCH 29.4 pg (28.0-34.0) 05/19/22 05:01 MCHC 32.4 g/dL (30.0-36.0) 05/19/22 05:01 RDW 11.8 % (12.1-15.1) L 05/19/22 05:01 Plt Count 274 10^3/cmm (130-400) 05/19/22 05:01 MPV 10.0 fL (7.4-10.4) 05/19/22 05:01 Neut % (Auto) 59.5 % 05/19/22 05:01 Lymph % (Auto) 31.6 % 05/19/22 05:01 [place] % (Auto) 6.2 % 05/19/22 05:01 Eos % (Auto) 1.9 % 05/19/22 05:01 Baso % (Auto) 0.4 % 05/19/22 05:01 Neut # (Auto) 4.34 10^3/uL (1.8-7.7) 05/19/22 05:01 Lymph # (Auto) 2.3 10^3/uL (0.8-4.8) 05/19/22 05:01 [place] # (Auto) 0.5 10^3/uL (0.2-0.9) 05/19/22 05:01 Eos # (Auto) 0.1 10^3/uL (0.0-0.8) 05/19/22 05:01 Baso # (Auto) 0.0 10^3/uL (0.0-0.1) 05/19/22 05:01 Nucleated RBC % (auto) 0 % 05/19/22 05:01 Nucleated RBCs # 0.0 /100WBC 05/19/22 05:01 Sodium 139 mmol/L (136-145) 05/19/22 05:01 Potassium 3.5 mmol/L (3.5-5.1) 05/19/22 05:01 Chloride 104 mmol/L (98-107) 05/19/22 05:01 Carbon Dioxide 26 mmol/L (22-29) 05/19/22 05:01 Anion Gap 12.5 (5-19) 05/19/22 05:01 BUN 16 mg/dL (6-20) 05/19/22 05:01 Creatinine 0.6 mg/dL (0.5-0.9) 05/19/22 05:01 GFR Calculation 111.3 mL/min (90-130) 05/19/22 05:01 Glucose 112 mg/dL (65-115) 05/19/22 05:01 Calculated Osmolality 290 mOsm/kg (285-295) 05/19/22 05:01 Calcium 8.6 mg/dL (8.5-10.5) 05/19/22 05:01 Total Bilirubin 0.4 mg/dL (0.15-1.2) 05/19/22 05:01 AST 15 U/L (0-32) 05/19/22 05:01 ALT 9 U/L (0-33) 05/19/22 05:01 Alkaline Phosphatase 63 U/L (35-105) 05/19/22 05:01 Creatine Kinase 38 U/L (26-192) 05/19/22 05:01 Troponin T Baseline 6 ng/L (0-10) 05/19/22 05:01 NT-Pro-B Natriuret Pep 41 pg/mL (0-125) 05/19/22 05:01 Total Protein 7.0 g/dL (6.6-8.7) 05/19/22 05:01 Albumin 4.2 g/dL (3.5-5.2) 05/19/22 05:01 Globulin 2.8 g/dL (1.3-4.6) 05/19/22 05:01 TSH 3.11 uIU/mL (0.27-4.20) 05/19/22 05:01 HCG, Qual Negative (Negative) 05/19/22 05:01 Urine Color Dark yellow (Yellow) 05/19/22 05:50 Urine Appearance Clear (CLEAR) 05/19/22 05:50 Urine pH 5 (5-7) 05/19/22 05:50 Ur Specific [place] 1.020 (1.005-1.030) 05/19/22 05:50 Urine Protein 1+ (Negative) H 05/19/22 05:50 Urine Glucose (UA) Norm (Normal) 05/19/22 05:50 Urine Ketones 1+ (Negative) H 05/19/22 05:50 Urine Blood Neg (Negative) 05/19/22 05:50 Urine Nitrate Negative (Negative) 05/19/22 05:50 Urine Bilirubin 1+ (Negative) H 05/19/22 05:50 Urine Urobilinogen 4 mg/dL (Negative) H 05/19/22 05:50 Ur Leukocyte Esterase Trace (Negative) H 05/19/22 05:50 Urine RBC None /hpf (0-2) 05/19/22 05:50 Urine WBC 0-4 /hpf (0-5) H 05/19/22 05:50 Ur Squamous Epith Cells 0-4 /hpf (0-5) H 05/19/22 05:50 Amorphous Sediment Not Reportable 05/19/22 05:50 Urine Bacteria 1+ /hpf (NONE) H 05/19/22 05:50 Urine Mucus 1+ /hpf 05/19/22 05:50 Discharge Plan Discharge Patient Disposition: Home Clinical Impression: Vasovagal syncope, Bradycardia, sinus Condition: Stable Prescriptions: No Action multivitamin Tablet 1 tab PO DAILY scopolamine base 1 mg over 3 days patch 3 day 1 patch transdermal Q3D PRN (Reason: nausea and vomiting) Qty: 10 0RF Tremfya 100 mg/mL syringe 100 mg SUBCUT .[id number] Qty: 1 5RF Rx Instructions: Inject 100mg subcutaneously every 8 weeks escitalopram oxalate 10 mg tablet 10 mg PO DAILY Qty: 30 11RF Discharge Orders: Discharge ED (Routine); Ordered 05/19/22 Ordered By: Jose Broussard Referrals: Vishnu Hernandez MD [Primary Care Provider] - 1-3 days Patient Instructions: Syncope (ED), Bradycardia (ED) Activity Restrictions/Additional Instructions: Return for repeat episodes of syncope or passing out. Return for chest discomfort, other concerning symptoms. Follow-up with your doctor at the beginning of the week. There may be more outpatient tests needed. Coding Level of Care Code ED Olericulture Professor for Ayala Mccurdy
[2022-05-19 05:50] LABS: Alanine Aminotransferase 9 U/L (0-33); Albumin Level 4.2 g/dL (3.5-5.2); Alkaline Phosphatase 63 U/L (35-105); Anion Gap 12.5 (5-19); Aspartate Amino Transferase 15 U/L (0-32); Blood Urea Nitrogen 16 mg/dL (6-20); Calcium 8.6 mg/dL (8.5-10.5); Carbon Dioxide 26 mmol/L (22-29); Chloride 104 mmol/L (98-107); Globulin 2.8 g/dL (1.3-4.6); Glomerular Filtration Rate 111.3 mL/min (90-130); Glucose 112 mg/dL (65-115); NT Pro B Type Natriuretic Pept 41 pg/mL (0-125); Osmolality Calculated 290 mOsm/kg (285-295); Potassium 3.5 mmol/L (3.5-5.1); Sodium 139 mmol/L (136-145); Total Bilirubin 0.4 mg/dL (0.15-1.2)
[2022-05-19 06:00] VITALS: BP 105/65; PULSE 55; RESP 14; O2SAT 100
[2022-05-19 06:14] LABS: Creatine Phosphokinase 38 U/L (26-192); Thyroid Stimulating Hormone 3.11 uIU/mL (0.27-4.20)
[2022-05-19 06:32] LABS: Protein Urine 1+ (Negative); Urine Appearance Clear (CLEAR); Urine Color Dark Yellow (Yellow); pH Urine 5 (5-7)
[2022-05-19 06:33] LABS: Add Urine Culture? No; Add Urine Microscopic? YES; Bacteria Urine 1+ /hpf; Bilirubin Urine 1+ (Negative); Blood Urine Neg (Negative); Glucose Urine UA Norm (Normal); Ketones Urine 1+ (Negative); Leukocyte Esterase Urine Trace (Negative); Mucus Urine 1+ /hpf; Nitrate Urine Negative (Negative); Squamous Epithelial Cell Urine 0-4 /hpf (0-5); Urobilinogen Urine 4 mg/dL (Negative); WBC Urine 0-4 /hpf (0-5)
[2022-05-19] MEDS: ondansetron 2 mg/ML SDV 2 mL 4 MG IVP (06:33)
[2022-05-19] MEDS: ketorolac 30 mg/mL INJ 15 MG IVP (06:33)
[2022-05-19 06:48] VITALS: BP 107/68; PULSE 52; RESP 16; O2SAT 98
== END 2022-05-19 06:35 | disposition home or self-care (01) ==
PROVIDERS: Emergency Provider Emergency Medicine; PCP Family Medicine
DX: R55 Syncope and collapse (principal); R00.1 Bradycardia, unspecified
CPT/HCPCS: 70450; 71045; 80053; 81001; 82550; 83880; 84443; 84484; 84703; 85025; 93005; 96361; 96374; 96375; 99285; J1885; J2405; J7030

== ENCOUNTER 2022-09-13 12:24 | Emergency (ER) | payer OTHER, SELFPAY ==
[2022-09-13 12:52] VITALS: BP 109/76; PULSE 66; RESP 16; TEMP 36.7; O2SAT 99; BMI 23.0
--- NOTE | 2022-09-13 13:27 | ED_ITS ---
HPI - Abdominal Pain General: Chief Complaint: Abdominal Pain Stated Complaint: abd pain Time Seen by Provider: 09/13/22 13:10 History of Present Illness: Presents to the ER with complaints of right lower quadrant abdominal pain times last 5 days. Patient went to urgent care this morning and they sent her over here. Patient has had nausea but no vomiting. She has had diarrhea couple days ago but not currently. She states no medicine has helped relieve the pain. It hurts on movement as well as stretching out it hurts less when she is curled up in a position. Patient has had this a couple years ago where she was worked up and had an ultrasound but they did not find anything. Review of Systems General: Reports: 10 or more systems reviewed and unremarkable except in HPI and below PFSH ED PFSH: Medical History Acne Aftercare following surgery of the genitourinary system Hx LEEP (loop electrosurgical excision procedure), cervix, (~2001) Immunosuppression Psoriatic arthritis Ulnar neuropathy of both upper extremities Surgical History H/O section (~02/2003) H/O laparoscopy 04/04/2021- diagnostic laparoscopy performed by Dr. Bedolla at [facility] H/O neck surgery (~06/2018) laminectomy; fusion History of back surgery (~2009) [facility] History of weight loss surgery gastric sleeve 12/01/21 in [place] Family History Father Hypertension Heart disease Grandfather Hypertension PATERNAL Stroke PATERNAL Mother Diabetes Grandmother Diabetes PATERNAL Family history of thyroid problem MATERNAL Stroke MATERAL Denies family history of Colon cancer Ovarian cancer Clotting disorder Breast cancer Anesthesia complication Bleeding disorder Uterine cancer Thyroid condition Social History Smoking and tobacco status: never smoked Substance/Drug Use: never Additional social history: - Tobacco use: Denies Alcohol use: Denies Drug use: Denies Physical Exam Const: COMMON NORMALS: no acute distress, average body habitus, patient oriented x3, no limitations, healthy appearing and alert HENMT: COMMON NORMALS: normocephalic, atraumatic, hearing grossly normal bilaterally, external ears normal, Normal nasal mucous membranes and turbinates present and oropharynx normal HEAD & SCALP: normocephalic and atraumatic NOSE: Normal nasal mucous membranes and turbinates present EXTERNAL EAR: Yes external ears normal Neck/C-Spine: COMMON NORMALS: full ROM, no lymphadenopathy, supple, no meningeal signs, no JVD and Thyroid normal THYROID: Thyroid normal Chest: COMMONS NORMALS: normal inspection of the chest Resp: COMMON NORMALS: normal respiratory effort, No retractions, No use of accessory muscles and clear to auscultation bilaterally AUSCULTATION: clear to auscultation bilaterally Cardio: COMMON NORMALS: no JVD, regular rate, regular rhythm, S1 normal heart sound present, S2 normal heart sound present, No gallops present (Cardio), No clicks present (Cardio), No murmurs present (Cardio) and No rub (Cardio) RATE: regular rate RHYTHM: regular rhythm HEART SOUNDS: S1 normal heart sound present and S2 normal heart sound present GI: COMMON NORMALS: Normal to inspection, nondistended, normoactive bowel sounds present, Soft to palpation, No hepatosplenomegaly present and no masses; negative for non-tender (Mild tender to palpation over right lateral abdominal wall.) PALPATION: Yes Soft to palpation and Yes No hepatosplenomegaly present Neuro: COMMON NORMALS: patient oriented x3 SENSORIUM/ORIENTATION: Yes alert MENINGEAL SIGNS: Yes no meningeal signs Course Vital Signs: Vital signs: Vital Signs Temperature 98.1 F 09/13/22 12:52 Pulse Rate 76 09/13/22 15:08 Respiratory Rate 16 09/13/22 15:08 Blood Pressure 95/63 09/13/22 15:08 Pulse Oximetry 99 09/13/22 15:08 Oxygen Delivery Me thod Room Air 09/13/22 12:52 MDM - Abdominal Pain Medical Decision Making Presents to the ER with complaints of right lower quadrant right lateral abdominal pain. This been going on for about 5 days. Getting worse. Patient has had this happen before and been worked up but all findings were negative. Physical exam was performed and lab work urine and imaging was obtained all of which essentially was benign. These findings was discussed with the patient and her suggest that she follow back up with her family practice doctor for possible referral to GI. Differential Diagnosis Likely abdominal pain; Unlikely acute appendicitis, calculus of kidney, constipation, diverticulitis, endometriosis, gastroenteritis, pancreatitis or small bowel obstruction Medical Records I reviewed the patient's medical records. Lab Data I reviewed the patient's lab results. 09/13/22 13:27 09/13/22 13:27 Labs/Radiology: Radiology Impressions Abdomen/Pelvis CT 09/13/22 14:09 IMPRESSION: 1. Normal pancreatic parenchymal enhancement. No evidence of acute pancreatitis. Recommend correlation with pancreatic function enzymes. 2. No peripancreatic fluid collections or pseudocysts. 3. Postoperative changes along the stomach from previous gastric sleeve. Tiny esophageal hiatal hernia. 4. Mild hepatomegaly. 5. No hydronephrosis in either kidney. 6. Normal appendix in RIGHT lower quadrant. 7. Gallbladder appears normal. 8. No other suspicious findings. Laboratory Results WBC 6.8 10^3/uL (4.0-10.0) 09/13/22 13:27 RBC 4.74 10^6/uL (4.1-5.3) 09/13/22 13:27 Hgb 14.1 g/dL (11.5-15.3) 09/13/22 13:27 Hct 43.1 % (37.0-47.0) 09/13/22 13:27 MCV 90.9 fl (81-99) 09/13/22 13:27 MCH 29.7 pg (28.0-34.0) 09/13/22 13:27 MCHC 32.7 g/dL (30.0-36.0) 09/13/22 13:27 RDW 11.7 % (12.1-15.1) L 09/13/22 13:27 Plt Count 275 10^3/cmm (130-400) 09/13/22 13:27 MPV 10.0 fL (7.4-10.4) 09/13/22 13:27 Neut % (Auto) 66.0 % 09/13/22 13:27 Lymph % (Auto) 25.5 % 09/13/22 13:27 [place] % (Auto) 7.3 % 09/13/22 13:27 Eos % (Auto) 0.6 % 09/13/22 13:27 Baso % (Auto) 0.3 % 09/13/22 13:27 Neut # (Auto) 4.46 10^3/uL (1.8-7.7) 09/13/22 13:27 Lymph # (Auto) 1.7 10^3/uL (0.8-4.8) 09/13/22 13:27 [place] # (Auto) 0.5 10^3/uL (0.2-0.9) 09/13/22 13:27 Eos # (Auto) 0.0 10^3/uL (0.0-0.8) 09/13/22 13:27 Baso # (Auto) 0.0 10^3/uL (0.0-0.1) 09/13/22 13:27 Nucleated RBC % (auto) 0 % 09/13/22 13:27 Nucleated RBCs # 0.0 /100WBC 09/13/22 13:27 Sodium 136 mmol/L (136-145) 09/13/22 13:27 Potassium 4.2 mmol/L (3.5-5.1) 09/13/22 13:27 Chloride 98 mmol/L (98-107) 09/13/22 13:27 Carbon Dioxide 28 mmol/L (22-29) 09/13/22 13:27 Anion Gap 14.2 (5-19) 09/13/22 13:27 BUN 10 mg/dL (6-20) 09/13/22 13:27 Creatinine 0.6 mg/dL (0.5-0.9) 09/13/22 13:27 GFR Calculation 111.3 mL/min (90-130) 09/13/22 13:27 Glucose 94 mg/dL (65-115) 09/13/22 13:27 Calculated Osmolality 281 mOsm/kg (285-295) L 09/13/22 13:27 Calcium 9.2 mg/dL (8.5-10.5) 09/13/22 13:27 Magnesium 2.0 mg/dL (1.7-2.3) 09/13/22 13:27 Total Bilirubin 0.5 mg/dL (0.15-1.2) 09/13/22 13:27 AST 15 U/L (0-32) 09/13/22 13:27 ALT 12 U/L (0-33) 09/13/22 13:27 Alkaline Phosphatase 61 U/L (35-105) 09/13/22 13:27 Total Protein 7.4 g/dL (6.6-8.7) 09/13/22 13:27 Albumin 4.4 g/dL (3.5-5.2) 09/13/22 13:27 Globulin 3.0 g/dL (1.3-4.6) 09/13/22 13:27 Lipase 63 U/L (13-60) H 09/13/22 13:27 Urine Color Yellow (Yellow) 09/13/22 13:27 Urine Appearance Clear (CLEAR) 09/13/22 13:27 Urine pH 7 (5-7) 09/13/22 13:27 Ur Specific [place] 1.010 (1.005-1.030) 09/13/22 13:27 Urine Protein Neg (Negative) 09/13/22 13:27 Urine Glucose (UA) Norm (Normal) 09/13/22 13:27 Urine Ketones Negative (Negative) 09/13/22 13:27 Urine Blood Neg (Negative) 09/13/22 13:27 Urine Nitrate Negative (Negative) 09/13/22 13:27 Urine Bilirubin Neg (Negative) 09/13/22 13:27 Urine Urobilinogen Norm mg/dL (Negative) 09/13/22 13:27 Ur Leukocyte Esterase Negative (Negative) 09/13/22 13:27 Discharge Plan Discharge Patient Disposition: Home Clinical Impression: Abdominal pain, right lower quadrant Condition: Stable Prescriptions: No Action multivitamin Tablet 1 tab PO DAILY escitalopram oxalate 10 mg tablet 10 mg PO DAILY Qty: 30 11RF clobetasol 0.05 % solution 1 applic topical DAILY Qty: 50 3RF Rx Instructions: Apply few drops to itchy areas of scalp as needed. Tremfya 100 mg/mL syringe 100 mg SUBCUT .[id number] Qty: 1 5RF Rx Instructions: Inject 100mg subcutaneously every 8 weeks Discharge Orders: Discharge ED (Routine); Ordered 09/13/22 Ordered By: Robert Menard Referrals: Vishnu Hernandez MD [Primary Care Provider] - 1 week Patient Instructions: Abdominal Pain (ED) Activity Restrictions/Additional Instructions: Please follow-up with your family practice provider in the next week. You may benefit from a further evaluation and treatment and/or referral to GI. Coding Level of Care Code ED Audio Visual Aids Director for Ayala Mccurdy
[2022-09-13 13:33] VITALS: BP 130/82; RESP 16; O2SAT 99
[2022-09-13 13:34] LABS: Basophils % 0.3 %; Eosinophils % 0.6 %; Hematocrit 43.1 % (37.0-47.0); Hemoglobin 14.1 g/dL (11.5-15.3); Lymphocytes # 1.7 10^3/uL (0.8-4.8); Lymphocytes % 25.5 %; Mean Corpuscular HGB Conc 32.7 g/dL (30.0-36.0); Mean Corpuscular Hemoglobin 29.7 pg (28.0-34.0); Mean Corpuscular Volume 90.9 fl (81-99); Monocytes # 0.5 10^3/uL (0.2-0.9); Monocytes % 7.3 %; Neutrophils # 4.46 10^3/uL (1.8-7.7); Nucleated Red Blood Cells % 0 %; Platelet Count 275 10^3/cmm (130-400); Red Blood Count 4.74 10^6/uL (4.1-5.3); Red Cell Distribution Width 11.7 % (12.1-15.1); White Blood Count 6.8 10^3/uL (4.0-10.0)
[2022-09-13 13:36] LABS: Add Urine Microscopic? NO; Charge for UA Resulting for Rev
[2022-09-13] MEDS: sodium chloride 0.9% 1,000 ML 999 ML IV (13:37)
[2022-09-13] MEDS: ondansetron 2 mg/ML SDV 2 mL 4 MG IVP (13:37)
[2022-09-13 13:38] VITALS: PULSE 61
[2022-09-13 13:43] LABS: Bilirubin Urine Neg (Negative); Blood Urine Neg (Negative); Glucose Urine UA Norm (Normal); Ketones Urine Negative (Negative); Leukocyte Esterase Urine Negative (Negative); Nitrate Urine Negative (Negative); Protein Urine Neg (Negative); Urine Appearance Clear (CLEAR); Urine Color Yellow (Yellow); Urobilinogen Urine Norm (Negative); pH Urine 7 (5-7)
[2022-09-13 13:58] LABS: Alanine Aminotransferase 12 U/L (0-33); Albumin Level 4.4 g/dL (3.5-5.2); Alkaline Phosphatase 61 U/L (35-105); Anion Gap 14.2 (5-19); Aspartate Amino Transferase 15 U/L (0-32); Blood Urea Nitrogen 10 mg/dL (6-20); Calcium 9.2 mg/dL (8.5-10.5); Carbon Dioxide 28 mmol/L (22-29); Chloride 98 mmol/L (98-107); Glomerular Filtration Rate 111.3 mL/min (90-130); Glucose 94 mg/dL (65-115); Lipase 63 U/L (13-60); Osmolality Calculated 281 mOsm/kg (285-295); Potassium 4.2 mmol/L (3.5-5.1); Sodium 136 mmol/L (136-145); Total Bilirubin 0.5 mg/dL (0.15-1.2); Total Protein 7.4 g/dL (6.6-8.7)
--- NOTE | 2022-09-13 14:09 | CT_ITS ---
WS: [id number] CT ABDOMEN PELVIS TECHNIQUE: Contrast-enhanced CT of the abdomen and pelvis with coronal and sagittal reformatted image s. CLINICAL INFORMATION: abd pain, elevated lipase, nausea COMPARISON: CT February 12, 2021 DLP: 416.[address] scans at [facility] use at least one of these dose optimization techniques: automated e xposure control; mA and/or kV adjustment per patient size (includes targeted exams where dose is matc hed to clinical indication); or iterative reconstruction. FINDINGS: Hepatomegaly. Normal portal vein and splenic vein. Normal spleen. Tiny esophageal hiatal hernia. Post operative changes involving the stomach compatible with gastric sleeve. Slight bibasilar atelectasis. Normal pancreatic parenchymal enhancement. No significant inflammatory stranding or edema about the pancreas to indicate acute pancreatitis. Recommend correlation with pancreatic markers. No peripancre atic fluid collections. Normal caliber abdominal aorta. Celiac and SMA are patent. Adrenal glands are normal. No hydronephros is in either kidney. Normal ureteral excretion on the delayed images. Normal sigmoid colon. Normal appendix in the RIGHT lower quadrant. No evidence of acute appendicitis. CT/CT abdomen pelvis w con* [id number] IMPRESSION: 1. Normal pancreatic parenchymal enhancement. No evidence of acute pancreatiti s. Recommend correlation with pancreatic function enzymes. 2. No peripancreatic fluid collections or pseudocysts. 3. Postoperative changes along the stomach from previous gastric sleeve. Tiny esophageal hiatal hernia. 4. Mild hepatomegaly. 5. No hydronephrosis in either kidney. 6. Normal appendix in RIGHT lower quadrant. 7. Gallbladder appears normal. 8. No other suspicious findings.
[2022-09-13] MEDS: iohexol 350 mg/mL 500 mL Btl (per mL) IV (14:32)
[2022-09-13 15:08] VITALS: BP 95/63; PULSE 76; RESP 16; O2SAT 99
[2022-09-13 15:36] VITALS: BP 104/68; PULSE 65; RESP 16; O2SAT 99
== END 2022-09-13 15:37 | disposition home or self-care (01) ==
PROVIDERS: Emergency Provider Emergency Medicine; PCP Family Medicine
DX: R10.31 Right lower quadrant pain (principal); R11.0 Nausea; R19.7 Diarrhea, unspecified; Z79.899 Other long term (current) drug therapy
CPT/HCPCS: 74177; 80053; 81003; 83690; 83735; 85025; 96361; 96374; 99285; J2405; J7030; Q9967

== ENCOUNTER 2023-06-12 08:39 | Outpatient (CLI) | payer OTHER, SELFPAY ==
[2023-06-17 11:45] LABS: Quantiferon Mitogen >10.00 IU/mL; Quantiferon Nil 0.01 IU/mL; Quantiferon Plus TB2 0.01 IU/mL; Quantiferon TB Gold NEGATIVE (NEGATIVE)
== END 2023-06-12 08:40 | disposition home or self-care (01) ==
LOC: LAB 08:41
PROVIDERS: PCP Family Medicine; Visit Provider Nurse Practitioner Family
DX: L40.0 Psoriasis vulgaris (principal)
CPT/HCPCS: 36415; 86480

== ENCOUNTER → 2023-06-28 12:02 | Outpatient (BNVA) | payer OTHER, SELFPAY | PROVIDERS: PCP Family Medicine; Visit Provider Registered Nurse Neonatal Intensive Care | DX: S69.92XA Unspecified injury of left wrist, hand and finger(s), initial encounter (principal); X58.XXXA Exposure to other specified factors, initial encounter; M79.642 Pain in left hand | CPT/HCPCS: 73130 ==

== ENCOUNTER → 2023-07-30 09:13 | Outpatient (BNVA) | payer OTHER, SELFPAY | PROVIDERS: PCP Family Medicine; Visit Provider Family Medicine | DX: R53.83 Other fatigue; E53.8 Deficiency of other specified B group vitamins; E55.9 Vitamin D deficiency, unspecified; E11.9 Type 2 diabetes mellitus without complications | CPT/HCPCS: 80053; 82306; 82607; 83735; 84443; 85025 ==

== ENCOUNTER 2023-11-05 10:50 | Outpatient (CLI) | payer OTHER, SELFPAY ==
--- NOTE | 2023-11-05 10:54 | MR_ITS ---
WS: [id number] MRI LUMBAR SPINE NONCONTRAST TECHNIQUE: Sagittal T1, T2 and STIR imaging. Axial T1 and T2 imaging. CLINICAL INFORMATION: PERSISTENT BACK PAIN/FAILED 6 WEEKS OF PT COMPARISON: MRI 2016 FINDINGS: Mild lumbar curve. No acute compression. Prior postoperative changes laminectomy defects L4-5. L1-L2: Mild facet arthropathy. Spinal canal and foramen are patent. L2-L3: No significant disc bulging. Mild facet arthropathy. Spinal canal and foramen are patent. L3-L4: No significant disc bulging. Mild facet arthropathy. Spinal canal and foramen are patent. L4-L5: Shallow central protrusion with slight impingement on the RIGHT subarticular recess and [place] sing RIGHT L5 nerve root. Mild facet arthropathy. Prior laminectomy defects at this level. Foramina a re patent. L5-S1: Mild annular bulging. Mild facet arthropathy. Tiny central protrusion with slight contact of t he traversing RIGHT S1 nerve root. Foramen are patent. Visualized pelvic bony structures: Normal. Paravertebral soft tissues: Normal. Tiny central protrusion T11-T12. Prior postoperative changes ACDF cervical spine. Several small disc protrusions in the lower thoracic spine partially visualized on the scada engineer imaging. This could be further evaluated with thoracic spine MRI if indicated. MR/MR lumbar spine wo con* [id number] IMPRESSION: 1. Mild lumbar curve. No acute compression. Prior postoperative changes L4-5. 2. Central disc protrusion L4-5 appears progressed compared to previous with s light impingement traversing RIGHT greater than LEFT L5 nerve roots with mild c entral canal stenosis. 3. Shallow central protrusion L5-S1 is similar to previous with slight contact of the traversing RIGHT S1 nerve root.. 4. Moderate facet arthropathy L4-L5 and L5-S1. 5. No other significant interval changes.
== END 2023-11-05 10:51 | disposition home or self-care (01) ==
LOC: RAD 10:50
PROVIDERS: PCP Family Medicine; Visit Provider Family Medicine
DX: M47.896 Other spondylosis, lumbar region (principal); M51.26 Other intervertebral disc displacement, lumbar region; M43.22 Fusion of spine, cervical region
CPT/HCPCS: 72148; 80053; 82306; 82607; 83735; 84443; 85025

== ENCOUNTER 2023-12-29 10:18 | Outpatient (CLI) | payer OTHER, SELFPAY ==
[2023-12-29 11:05] LABS: Basophils % 0.3 %; Eosinophils # 0.1 10^3/uL (0.0-0.8); Eosinophils % 1.9 %; Hematocrit 44.4 % (36-47); Lymphocytes # 1.7 10^3/uL (0.8-4.8); Lymphocytes % 25.6 %; Mean Corpuscular Hemoglobin 30.1 pg (27-33); Mean Corpuscular Volume 94.1 fl (85-98); Mean Platelet Volume 9.8 fL (7.4-10.4); Monocytes # 0.4 10^3/uL (0.2-0.9); Monocytes % 5.7 %; Neutrophils # 4.26 10^3/uL (1.8-7.7); Nucleated Red Blood Cells % 0 %; Platelet Count 270 10^3/cmm (157-399); Red Blood Count 4.72 10^6/uL (3.85-5.65); Red Cell Distribution Width 11.4 % (12.1-15.1); White Blood Count 6.45 10^3/uL (3.29-11.43)
[2023-12-29 11:18] LABS: Estmated Average Glucose 100; Hemoglobin A1C 5.1 % (4.0-6.0)
[2023-12-29 11:35] LABS: Alanine Aminotransferase 9 U/L (0-33); Albumin Level 4.3 g/dL (3.5-5.2); Alkaline Phosphatase 53 U/L (35-105); Anion Gap 14.1 (5-19); Aspartate Amino Transferase 16 U/L (0-32); Blood Urea Nitrogen 9 mg/dL (6-20); Calcium 8.5 mg/dL (8.5-10.5); Carbon Dioxide 26 mmol/L (22-29); Chloride 101 mmol/L (98-107); Chol HDL Ratio 6.03 mg/dL (0.0-4.40); Cholesterol 229 mg/dL (0-200); Globulin 2.9 g/dL (1.3-4.6); Glomerular Filtration Rate 92.2 mL/min (90-130); Glucose 141 mg/dL (65-115); HDL Cholesterol 38 mg/dL (60-100); LDL Cholesterol Calculated 163 mg/dL (50-129); LDL HDL Ratio 4.29 RATIO (0.00-3.22); Osmolality Calculated 285 mOsm/kg (285-295); Potassium 4.1 mmol/L (3.5-5.1); Sodium 137 mmol/L (136-145); Thyroid Stimulating Hormone 1.43 uIU/mL (0.27-4.20); Total Bilirubin 0.4 mg/dL (0.15-1.2); Total Protein 7.2 g/dL (6.6-8.7); Triglycerides 140 mg/dL (0-150)
[2023-12-29 12:30] LABS: 25 Hydroxy Vitamin D 23 ng/mL (30-100); Vitamin B12 898 pg/mL (232-1245)
== END 2023-12-29 10:19 | disposition home or self-care (01) ==
LOC: LAB 10:20
PROVIDERS: PCP Family Medicine; Visit Provider Family Medicine
DX: E55.9 Vitamin D deficiency, unspecified (principal); E78.5 Hyperlipidemia, unspecified; E53.8 Deficiency of other specified B group vitamins; D89.9 Disorder involving the immune mechanism, unspecified; G47.33 Obstructive sleep apnea (adult) (pediatric); R79.89 Other specified abnormal findings of blood chemistry
CPT/HCPCS: 36415; 80053; 80061; 82306; 82607; 83036; 84439; 84443; 85025

== ENCOUNTER → 2024-06-28 12:58 | Outpatient (BNVA) | payer OTHER, SELFPAY | PROVIDERS: PCP Family Medicine; Visit Provider Emergency Medicine | DX: M25.539 Pain in unspecified wrist (principal) | CPT/HCPCS: 73110 ==

== ENCOUNTER → 2024-07-04 13:51 | Outpatient (BNVA) | payer OTHER, SELFPAY | PROVIDERS: PCP Family Medicine; Visit Provider Emergency Medicine | DX: M25.539 Pain in unspecified wrist (principal) | CPT/HCPCS: 73110 ==

== ENCOUNTER 2024-08-06 11:03 | Outpatient (CLI) | payer OTHER, SELFPAY | END 2024-08-06 11:04 | disposition home or self-care (01) | PROVIDERS: PCP Family Medicine; Visit Provider Family Medicine | DX: E55.9 Vitamin D deficiency, unspecified (principal); K90.9 Intestinal malabsorption, unspecified; E78.5 Hyperlipidemia, unspecified; E53.8 Deficiency of other specified B group vitamins; R53.83 Other fatigue; D84.9 Immunodeficiency, unspecified; Z29.89 Encounter for other specified prophylactic measures | CPT/HCPCS: 80053; 80061; 82306; 82607; 82728; 82746; 83540; 83735; 84439; 84443; 85027; 86480 ==